=== PATIENT | male | born 1975 | race Caucasian/White ===

== ENCOUNTER 2016-06-28 08:03 | Inpatient (IN) | END 2016-07-02 16:30 | disposition home or self-care (01) | DRG 407 | DX: K80.10 Calculus of gallbladder with chronic cholecystitis without obstruction (principal); K76.89 Other specified diseases of liver; E66.01 Morbid (severe) obesity due to excess calories; Z68.39 Body mass index [BMI] 39.0-39.9, adult; G47.30 Sleep apnea, unspecified; F17.200 Nicotine dependence, unspecified, uncomplicated ==

== ENCOUNTER 2016-09-06 09:44 | Emergency (ER) | payer MEDICAID ==
[~2016-09-06] VITALS: Wt 110.0 kg
[~2016-09-06 09:44] MED LIST: CIPR500T4 PO; FOLI-49 PO; METR500T PO; MULTI PO; Nicotine (14 Mg/24 Hr) TRANSDERM; OXYC-279 PO; PANT40TA4 PO; Thiamine PO
[2016-09-06 10:21] LABS: URINE BLOOD (Dip) POC 2+ (NEGATIVE)
[2016-09-06] MEDS ORDERED: DOCU-144 PO (10:29)
[2016-09-06] MEDS ORDERED: CEPH-443 PO (10:29)
[2016-09-06] MEDS ORDERED: ACETAMINOPHEN 325 MG TAB PO ONE (10:30)
--- NOTE | 2016-09-06 12:24 | ERD ---
ER Documentation Chief Complaint Date/Time DATE: 09/06/16 TIME: 12:05 Chief Complaint DYSURIA X 2 DAYS HPI Patient is a 41-year-old male with no past medical history who presents to the ED with with dysuria and urgency 2 days. He also states that he has mild bilateral back pain. Denies history of kidney stones in the past. Denies nausea, vomiting or diarrhea. Denies fever or chills. States that he is sexually active in a monogamous relationship. Denies penile discharge. Denies history of STDs. Denies leg pain or leg swelling. Denies chest pain, cough, shortness of breath or difficulty breathing. Patient states that he also would like medication for constipation. ROS All systems reviewed and are negative except as per history of present illness. Medications Home Meds Active Scripts Cephalexin* (Keflex*) 500 Mg Capsule, 500 MG PO QID for 5 Days, CAP Prov:ISA SALDIVAR PA-C 09/06/16 Docusate Sodium* (Colace*) 100 Mg Capsule, 100 MG PO TID, #30 CAP Prov:ISA SALDIVAR PA-C 09/06/16 Pantoprazole (Protonix) 40 Mg Tabec, 40 MG PO DAILY, #1 TAB Prov:DOMINICK ZEPEDA MD 07/01/16 Oxycodone HCl/Acetaminophen (Percocet 5-325 mg Tablet) 1 Each Tablet, 1 EACH PO Q6H, #1 TAB Prov:DOMINICK ZEPEDA MD 07/01/16 Multivitamins* (Theragran*) 1 Tab Tab, 1 TAB PO DAILY for 1 Day, TAB Prov:DOMINICK ZEPEDA MD 07/01/16 Folic Acid* (Folic Acid*) 1 Mg Tablet, 1 MG PO DAILY for 1 Day, TAB Prov:DOMINICK ZEPEDA MD 07/01/16 [Nicotine (14 Mg/24 Hr)] 1 PATCH PATCH No Conflict Check, 1 PATCH TRANSDERM DAILY for 1 Day Prov:DOMINICK ZEPEDA MD 07/01/16 [Thiamine] 100 MG TAB No Conflict Check, 100 MG PO DAILY for 1 Day Prov:DOMINICK ZEPEDA MD 07/01/16 Metronidazole* (Flagyl*) 500 Mg Tablet, 500 MG PO TID, #15 TAB Prov:DOMINICK ZEPEDA MD 07/01/16 Ciprofloxacin Hcl* (Ciprofloxacin Hcl*) 500 Mg Tablet, 500 MG PO BID, #14 TAB Prov:DOMINICK ZEPEDA MD 07/01/16 Allergies Allergies: Coded Allergies: No Known Allergy (Unverified , 06/26/13) PMhx/Soc History of Surgery: Yes (cholecystectomy) Anesthesia Reaction: No Hx Neurological Disorder: No Hx Respiratory Disorders: No Hx Cardiac Disorders: No Hx Psychiatric Problems: No Hx Miscellaneous Medical Probl: No Hx Alcohol Use: Yes (2 BEER DAILY) Hx Substance Use: No Hx Tobacco Use: Yes (1 PACK CIGARETTES DAILY) Smoking Status: Current every day smoker FmHx Family History: No coronary disease, No diabetes, No other Physical Exam Vitals Vital Signs Date Time Temp Pulse Resp B/P Pulse Ox O2 Delivery O2 Flow Rate FiO2 09/06/16 09:46 98.0 110 18 142/82 99 Physical Exam GENERAL: Well-developed, well-nourished male. Appears in no acute distress. HEAD: Normocephalic, atraumatic. EYES: Pupils are equally reactive bilaterally. EOMs grossly intact. No conjunctival erythema. ENT: Moist mucous membranes. No uvula deviation. No kissing tonsils. No exudates. NECK: Supple. No lymphadenopathy or thyromegaly. No meningismus. negative kernig. negative brudinski. LUNG: Clear to auscultation bilaterally. No rhonchi, wheezing, rales or coarse breath sounds. HEART: Regular rate and rhythm. No murmurs, rubs or gallops. ABDOMEN: No scars, ecchymosis or rashes noted. Soft, nontender, and nondistended. Positive bowel sounds in all four quadrants. No rebound tenderness , no guarding. (-) McBurneys point tenderness. No CVA tenderness. BACK: No midline tenderness. Extremities: Equal pulses bilaterally. No peripheral clubbing, cyanosis or edema. No unilateral leg swelling. negative ladi sign. NEUROLOGIC: Alert and oriented. Moving all four extremities. 5/5 strength in all extremities. Normal speech. Steady gait. SKIN: Normal color. Warm and dry. No rashes or lesions. Capillary refill < 2 seconds Results 24 hrs Laboratory Tests Test 09/06/16 10:23 Bedside Urine pH (LAB) 6.0 Bedside Urine Protein (LAB) 3+ Bedside Urine Glucose (UA) 0.1% Bedside Urine Ketones (LAB) 1+ Bedside Urine Blood 2+ Bedside Urine Nitrite (LAB) Negative Bedside Urine Leukocyte Esterase (L 1+ Current Medications Medications (Trade) Dose Ordered Sig/Mihai Route PRN Reason Start Time Stop Time Status Last Admin Dose Admin Acetaminophen (Tylenol Tab) 650 mg ONCE ONCE PO 09/06/16 10:30 09/06/16 10:31 DC 09/06/16 10:18 Procedures/MDM ER COURSE: I kept the patient and/or family informed of laboratory and diagnostic imaging results throughout the emergency room course. LABORATORY STUDIES URINE DIP shows 1+ leukocytes, 2+ blood, no nitrites. MEDICAL DECISION MAKING: This is a 41-year-old male who presents with dysuria 2 days. Vital signs were reviewed. Patient is afebrile. Patient is not hypoxic. Patient is not toxic or ill-appearing. Patient has a pulse of 110, likely related to stress reaction. His urine dip shows 1+ leukocytes with no nitrites. Patient likely has cystitis. I have low suspicion for septic or obstructive stone. Low suspicion for ACS, AAA, perforated ulcer, bowel obstruction, cholecystitis, choledocholithiasis, cholangitis, pancreatitis, hepatic abscess, appendicitis, diverticulitis, gastroenteritis, hepatitis, peptic ulcer disease. I have low suspicion for bowel obstruction. Patient does not have abdominal pain, jaundice or icterus. Low suspicion for testicular torsion. DISCHARGE: At this time, patient is stable for discharge and outpatient management with no new complaints during the ER course. Patient was sent home with Lee Mendez. Patient will be discharged home with instructions to recheck for new or worsening symptoms such as fever, nausea, weakness, LOC and to follow up with primary care in the next 1-2 days. Patient was advised to return to the ER for any new or worsening symptoms. Plan was discussed and patient and/or family understands and agrees. Home instructions were given. Departure Diagnosis: Primary Impression: Dysuria Condition: Stable Patient Instructions: Dysuria Referrals: NO PRIMARY,CARE PHYSICIAN (PCP) Additional Instructions: Llame al doctor MAANA y naif kanwal CLIFF PARA DENTRO DE 1-2 TRAN.Dgale a la secretaria que nosotros le instruimos hacer esta cliff.Avise o llame si humphrey condicin se empeora antes de la cliff. Regresa aqui si peor o no mejor. ISA SALDIVAR PA-C September 06, 2016 12:16
== END 2016-09-06 10:41 | disposition home or self-care (01) ==
LOC: FTE 09:44
DX: R30.0 Dysuria (principal); F17.210 Nicotine dependence, cigarettes, uncomplicated
CPT/HCPCS: 81003; 87086; Z7502; Z7610; 99283